=== PATIENT | male | born 1995 | race Caucasian/White ===

== ENCOUNTER 2024-04-12 16:48 | Emergency (ER) | payer OTHER ==
[2024-04-12] MEDS ORDERED: Acetaminophen 500 MG TAB ONE (17:52)
[2024-04-12] MEDS ORDERED: Ibuprofen 200 MG TAB ONE (17:52)
== END 2024-04-12 18:36 | disposition home or self-care (01) ==
LOC: ERS 16:48
DX: S06.9X9A Unspecified intracranial injury with loss of consciousness of unspecified duration, initial encounter (principal); S02.2XXA Fracture of nasal bones, initial encounter for closed fracture; S00.12XA Contusion of left eyelid and periocular area, initial encounter; S00.11XA Contusion of right eyelid and periocular area, initial encounter; Y04.0XXA Assault by unarmed brawl or fight, initial encounter
CPT/HCPCS: 70450; 70486; 72072; 72125